=== PATIENT | female | born 1995 | race Caucasian/White ===

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

== ENCOUNTER 2017-12-08 23:19 | Emergency (ER) | payer BC ==
[~2017-12-08] VITALS: Ht 172.7 cm; Wt 68.2 kg
[~2017-12-08 23:19] MED LIST changes: +SPRINTEC 35 MCG1 TAB PO; +SYNTHROID 0.0.025 MG PO
[2017-12-08 23:25] VITALS: BP 146/99; TEMP 98.5
[2017-12-08] MEDS ORDERED: ZOLOFT 100MG100 MG PO (23:50)
[2017-12-09 00:11] LABS: HEMATOCRIT 38.4 % (35.0-45.0); HEMOGLOBIN 12.7 g/dl (12.0-15.0); MEAN CELL VOLUME 84 fl (80.0-95.0); MEAN CORPUSCULAR HEMOGLOBIN 28 pg (26.0-32.0); MEAN CORPUSCULAR HGB CONC 33 g/dl (33.0-37.0); MEAN PLATELET VOLUME 9.8 fl (7.4-10.4); PLATELET COUNT 242 K/mm3 (130-400); REDCELL DISTRIBUTION WIDTH-CV 15.8 % (11.5-14.5)
[2017-12-09 00:14] LABS: COLLECTION METHOD CLEAN CATCH
[2017-12-09 00:20] LABS: MUCOUS Present /lpf; PH 6 (5-8); SQUAMOUS EPITHELIAL 0-2 /hpf; URINE APPEARANCE Clear; URINE BACTERIA None Seen /hpf; URINE BILIRUBIN Negative (NEGATIVE); URINE BLOOD Negative (NEGATIVE); URINE COLOR Yellow; URINE GLUCOSE Negative (NEGATIVE); URINE KETONE Negative (NEGATIVE); URINE LEUKOCYTE ESTERASE Negative (NEGATIVE); URINE NITRATE Negative (NEGATIVE); URINE PROTEIN(semi-quant) Negative (NEGATIVE); URINE RBC 0-2 /hpf; URINE UROBILINOGEN Negative (NEGATIVE)
[2017-12-09 00:24] LABS: BILIRUBIN,TOTAL 0.4 mg/dL (0.0-1.0); C-REACTIVE PROTEIN 1.4 mg/dL (0.0-0.9); CALCIUM 8.7 mg/dL (8.4-10.2); CREATININE, serum 0.76 mg/dL (0.52-1.25); POTASSIUM 3.5 mmol/L (3.4-5.0); TOTAL PROTEIN 7.5 gm/dL (6.4-8.2)
[2017-12-09 00:52] LABS: BAND 1 % (0-10); EOSINOPHIL 2 % (0-4); NEUTROPHILS 25 % (42.0-75.2)
[2017-12-09 00:53] LABS: LYMPHOCYTE 56 % (20.0-51.0); PLATELET ESTIMATE NORMAL (NORMAL)
[2017-12-09 00:54] LABS: HYPOCHROMIA 2+
[2017-12-09 00:57] LABS: ERYTHROCYTE SEDIMENTATION RATE 8 mm/hr (0-20)
[2017-12-09 03:19] VITALS: PULSE 64
[2017-12-09 08:19] LABS: PATHOLOGY DIFF REVIEW OK
== END 2017-12-09 02:50 | disposition home or self-care (01) ==
LOC: COL.ER 23:19
PROVIDERS: Physician Assistant
DX: R07.81 Pleurodynia (principal); Z90.89 Acquired absence of other organs
CPT/HCPCS: Q9967

== ENCOUNTER 2019-05-02 22:40 | Emergency (ER) | payer OTHER ==
[~2019-05-02] VITALS: Ht 172.7 cm; Wt 77.3 kg
[~2019-05-02 22:40] MED LIST changes: +ZOLOFT 100MG100 MG PO
[2019-05-02 22:45] VITALS: TEMP 96.6
[2019-05-02] MEDS ORDERED: EFFEXOR 75M75 MG/TAB PO (22:53)
[2019-05-03] MEDS ORDERED: CIPRO 500MG TA500 MG PO (00:26)
[2019-05-03 00:32] VITALS: BP 127/85; PULSE 85
== END 2019-05-03 00:35 | disposition home or self-care (01) ==
LOC: COL.ER 22:40
DX: H60.92 Unspecified otitis externa, left ear (principal); E03.9 Hypothyroidism, unspecified; J45.909 Unspecified asthma, uncomplicated; Z88.5 Allergy status to narcotic agent

== ENCOUNTER 2019-10-17 10:50 | Emergency (ER) | payer OTHER ==
[~2019-10-17] VITALS: Ht 172.7 cm; Wt 77.3 kg
[~2019-10-17 10:50] MED LIST changes: +CIPRO 500MG TA500 MG PO; +EFFEXOR 75M75 MG/TAB PO
[2019-10-17 10:58] VITALS: TEMP 98
[2019-10-17 11:53] LABS: BASO % 0.5 % (0.0-2.0); GRAN # 4.2 (1.4-6.5); GRAN % 76.2 % (42.2-75.2); HEMATOCRIT 40.7 % (37.0-47.0); HEMOGLOBIN 13.8 g/dl (12.5-16.0); LYMPH # 0.8 (1.2-3.4); LYMPH % 15.4 % (20.0-51.0); MEAN CELL VOLUME 86 fl (80.0-100.0); MEAN CORPUSCULAR HEMOGLOBIN 29 pg (27.0-31.0); MEAN CORPUSCULAR HGB CONC 34 g/dl (33.0-37.0); MEAN PLATELET VOLUME 9.7 fl (7.4-10.4); MONO # 0.4 (0.1-0.6); MONO % 7.5 % (1.7-9.3); PLATELET COUNT 293 K/mm3 (130-400); RED BLOOD COUNT 4.71 M/mm3 (4.10-5.30); REDCELL DISTRIBUTION WIDTH-CV 12.8 % (11.5-14.5)
[2019-10-17 12:02] LABS: ALBUMIN 4.2 gm/dL (3.5-5.0); BILIRUBIN,TOTAL 0.5 mg/dL (0.0-1.0); CALCIUM 9.1 mg/dL (8.4-10.2); CREATININE, serum 0.71 (0.52-1.25); POTASSIUM 3.4 mmol/L (3.4-5.0); TOTAL PROTEIN 8.1 gm/dL (6.4-8.2)
[2019-10-17] MEDS ORDERED: ZOFRAN ODT4 MG PO (15:07)
[2019-10-17 15:21] VITALS: BP 128/79; PULSE 91
== END 2019-10-17 15:22 | disposition home or self-care (01) ==
LOC: COL.ER 10:50
PROVIDERS: Physician Assistant
DX: A02.0 Salmonella enteritis (principal); E03.9 Hypothyroidism, unspecified; Z79.890 Hormone replacement therapy
CPT/HCPCS: J2405; J7030; Q9967

== ENCOUNTER 2019-10-19 19:02 | Emergency (ER) | payer OTHER ==
[~2019-10-19] VITALS: Ht 172.7 cm; Wt 77.3 kg
[~2019-10-19 19:02] MED LIST changes: +ZOFRAN ODT4 MG PO
[2019-10-19 19:48] LABS: BASO # 0.1 (0.0-0.2); BASO % 0.5 % (0.0-2.0); EOS % 0.4 % (0-4.0); GRAN # 7.4 (1.4-6.5); GRAN % 73.9 % (42.2-75.2); HEMATOCRIT 43.1 % (37.0-47.0); HEMOGLOBIN 14.5 g/dl (12.5-16.0); LYMPH # 1.3 (1.2-3.4); LYMPH % 13.3 % (20.0-51.0); MEAN CELL VOLUME 86 fl (80.0-100.0); MEAN CORPUSCULAR HEMOGLOBIN 29 pg (27.0-31.0); MEAN CORPUSCULAR HGB CONC 34 g/dl (33.0-37.0); MONO # 1.1 (0.1-0.6); MONO % 11.3 % (1.7-9.3); PLATELET COUNT 353 K/mm3 (130-400); RED BLOOD COUNT 5.02 M/mm3 (4.10-5.30); REDCELL DISTRIBUTION WIDTH-CV 12.7 % (11.5-14.5)
[2019-10-19 20:22] LABS: ALBUMIN 4.1 gm/dL (3.5-5.0); BILIRUBIN,TOTAL 0.6 mg/dL (0.0-1.0); C-REACTIVE PROTEIN 7.8 mg/dL (0.0-0.9); CALCIUM 8.7 mg/dL (8.4-10.2); CREATININE, serum 0.61 (0.52-1.25); POTASSIUM 3.8 mmol/L (3.4-5.0); TOTAL PROTEIN 7.7 gm/dL (6.4-8.2)
[2019-10-19 20:31] VITALS: BP 121/91; PULSE 90; TEMP 98.1
[2019-10-19] MEDS ORDERED: CIPRO 500MG TA500 MG PO (20:35)
[2019-10-19] MEDS ORDERED: FLAGYL500 MG PO (20:35)
== END 2019-10-19 20:55 | disposition home or self-care (01) ==
LOC: COL.ER 19:02
PROVIDERS: Emergency Medicine
DX: A04.8 Other specified bacterial intestinal infections (principal); E03.9 Hypothyroidism, unspecified; Z90.89 Acquired absence of other organs; Z79.890 Hormone replacement therapy
CPT/HCPCS: J7030